=== PATIENT | male | born 1950 | race African-American/Black ===

== ENCOUNTER 2019-08-31 09:11 | Inpatient (IN) | payer OTHER ==
--- NOTE | 2019-08-31 09:21 | PDOC ---
Attending Attestation - Resident Resident Name: Melodie Romero - HPI HPI: 08/31/19 10:42 Pt presents to the ED complaining of generalized malaise and weakness that started this AM. Denies fever, nausea and vomiting. Patient denies a seizure disorder history, but has had a CVA and is on keppra. Also complaining of shortness of breath and chest discomfort that he describes as "knocking" inside his chest. All symptoms have since resolved. - Physicial Exam PE: 08/31/19 10:51 Agree with resident exam. Patient is alert, in NAD. HEENT: + icteric sclera. + jaundice visible on underside of tongue. CV: rrr no m/r/g Pulm: CTA b/l Abdomen: soft, nt, ND Ext: no edema. Neuro: alert and oriented x 3. + left sided weakness, chronic as per patient. - Medical Decision Making 08/31/19 10:53 PT presents to the ED complaining of generalized malaise that has now resolved. Patient has an apparent history of seizure disorder. + jaundice. + elevated LFT on labs that is new from last visit in 2014. Differential includes biliary obstruction, hepatic or pancreatic mass, less likely hepatitis, unlikely hepatotoxic medications. Will check RUQ US and CT, admit to medicine for continued work up. 08/31/19 10:55
--- NOTE | 2019-08-31 09:23 | PDOC ---
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 Pt states he woke up throughout the night "feeling fine". The fatigue was also associated with "racing in his chest". Pt has been constipated x5 days, which is normal for him (takes linzess). Pt denies any shaking, confusion, or recent seizure activity. Pt states the fatigue improved once he was able to take his morning medication. Pt ambulates at home with a cane. Pt denies any recent medication changes, fevers/chills, headache, jaundice , vision changes, syncope, chest pain, SOB, nausea/vomiting, abdominal pain, urinary symptoms, diarrhea, hematuria or rectal bleeding, or leg swelling. BGM by EMS was 130 Allergies: NKDA PCP: Dr. Lakhwinder Hyatt GI: Dr. Mejia Cards: Dr. Shah Neuro: Dr. Cotton (has not seen since 2014), pt does not recall seizure history Social: Pt denies any cigarette, alcohol, or drug use. Pt denies any recent travel or sick contacts. Surgical: L knee surgery Family: no relevant history. 08/31/19 11:26 08/31/19 11:32 Past History - Travel Traveled outside of the country in the last 30 days: No Close contact w/someone who was outside of country & ill: No - Past Medical History Allergies/Adverse Reactions: Allergies Allergy/AdvReac Type Severity Reaction Status Date / Time No Known Allergies Allergy Verified 08/31/19 09:26 Home Medications: Ambulatory Orders Aspirin [ASA -] 81 mg PO DAILY #60 tab.chew 11/05/14 Hydralazine HCl 25 mg PO TID #90 tablet 11/05/14 Isosorbide Mononitrate 30 mg PO DAILY #30 tab.sr.24h 11/05/14 Lansoprazole [Prevacid -] 30 mg PO DAILY #30 cap.sr.24h 11/05/14 Metoprolol Tartrate [Lopressor -] 100 mg PO BID #60 tablet 11/05/14 Nifedipine [Procardia Xl] 30 mg PO DAILY #30 tab.er.24 11/05/14 Nitroglycerin Sublingual [Nitrostat -] 0.4 mg SL PRN PRN #30 tab 11/05/14 Ranolazine [Ranexa] 1,000 mg PO BID #0 tab.er.12h 11/05/14 Tamsulosin HCl 0.8 mg PO DAILY #30 cap.er.24h 11/05/14 levETIRAcetam [Keppra -] 500 mg PO BID #60 tablet 11/05/14 Atorvastatin Ca [Lipitor] 80 mg PO HS 03/01/15 Clopidogrel Bisulfate [Plavix -] 75 mg PO DAILY 03/01/15 Valsartan [Diovan] 320 mg PO DAILY 03/01/15 metFORMIN HCL [Metformin ER Osmotic] 1,000 mg PO BID 03/01/15 Cyanocobalamin [Vitamin B12 -] 1,000 mcg PO DAILY #30 tablet 03/04/15 Hydrochlorothiazide [Hctz -] 25 mg PO DAILY #30 tablet 03/04/15 Nifedipine ER [Procardia XL -] 60 mg PO DAILY #30 tab.er.24 03/04/15 Potassium Chloride [K-Dur -] 40 meq PO Q4HPO #10 tablet.er 03/04/15 Anemia: No Asthma: No Cancer: No Cardiac Disorders: Yes CVA: Yes (left sided paralysis) COPD: No CHF: No Diabetes: Yes GI Disorders: No Disorders: No HTN: Yes Hypercholesterolemia: Yes Liver Disease: No Seizures: No Thyroid Disease: No - Surgical History Cardiac Surgery: Yes (stents) Orthopedic Surgery: Yes (L. knee) - Immunization History Immunization Up to Date: Yes - Psycho Social/Smoking Cessation Hx Smoking Status: No Smoking History: Never smoked Have you smoked in the past 12 months: No Number of Cigarettes Smoked Daily: 0 Hx Alcohol Use: No Drug/Substance Use Hx: No Substance Use Type: None Hx Substance Use Treatment: No Review of Systems - Review of Systems Able to Perform ROS?: Yes Is the patient limited Bhutanese proficient: No Constitutional: Yes: Malaise, Weakness, Weight Stable. No: Chills, Fever, Loss of Appetite, Night Sweats HEENTM: No: Recent change in vision, Nose Congestion, Throat Pain, Throat Swelling, Difficulty Swallowing Respiratory: No: Cough, Orthopnea, Shortness of Breath Cardiac (ROS): Yes: Palpitations. No: Chest Pain, Edema, Irregular Heart Rate, Lightheadedness, Syncope, Chest Tightness ABD/GI: Yes: Constipated. No: Diarrhea, Nausea, Poor Appetite, Poor Fluid Intake, Rectal Bleeding, Vomiting, Abdominal cramping, Tarry Stools : No: Burning, Dysuria, Frequency, Flank Pain, Hematuria, Pain, Urgency Musculoskeletal: No: Back Pain, Joint Pain, Muscle Pain, Muscle Weakness Integumentary: No: Change in Color, Rash Neurological: No: Headache, Numbness, Seizure, Weakness, Dizziness Psychiatric: No: Sleep Pattern Change, Change in Appetite Endocrine: No: Increased Urine, Change in Weight Hematologic/Lymphatic: Yes: Anemia (prior GIB). No: Blood Clots, Easy Bleeding , Easy Bruising *Physical Exam - Physical Exam Comments: Vitals stable, pt afebrile. Pt in NAD, thin body habitus. Pt able to stand with his cane on his own. Pt alert and oriented x3. director trade generally intact, muscular strength and sensation intact. Mild weakness in L leg (pt states baseline). Facial expressions and sensation intact. No midline spinal tenderness, step-offs, or crepitus. Head normocephalic, atraumatic. Eyes PERRLA, EOMI. +scleral icterus Oropharynx without erythema or exudates, no LAD b/l. No nasal congestion. Hearing intact. Clear heart sounds, S1/S2, no JVD, b/l pedal edema, or heart murmur. Clear lung sounds, no respiratory distress, wheezes, crackles, or accessory muscle use. No abdominal or CVA tenderness to palpation, no rebound, no guarding. Abdomen soft, non-distended, and with normoactive bowel sounds. Skin without jaundice or rash. 08/31/19 11:33 08/31/19 11:34 ED Treatment Course - LABORATORY CBC & Chemistry Diagram: 08/31/19 09:42 08/31/19 09:42 Medical Decision Making - Medical Decision Making Pt was seen at bedside, also will be seen by attending Dr. Velasco. Pt presenting with generalized weakness, scleral icterus on PE, no abdominal pain or tenderness. Will evaluate for anemia vs elevated LFTs (biliary obstruction, hepatitis) vs infection vs electrolyte abnormalities vs ACS. Provided 1 L IV NS for hydration. Will continue to reassess pt and monitor for symptomatic improvement. ECG: NSR, intervals WNL (HR 84, DE 204, QRS 82, QTc 467). TWIs in I, large T- wave V3. No significant changes from prior ECG (03/01/15). CBC unremarkable CMP: K 3.1, AST 166. A:T 205, ALK 505, Tbili 5.9 -- providing KCl Will evaluate with RUQ US and non-contrast abd/pelvis CT. 08/31/19 11:35 Troponin negative with no new EKG changes. UA -- nitrite positive urine +bacteria -- 1 g IV ceftriaxone Pt in US and CT scans. 08/31/19 11:46 IMPRESSION: Markedly dilated CBD up to 1.2 cm containing large amount of sludge and stone with intrahepatic biliary ductal dilatation. Distended gallbladder and mildly thickened wall with large amount of inspissated sludge and gallstones. Numerous right renal stones with no evidence of hydronephrosis. 08/31/19 12:[address] Llanes for admission for Dr. Samuel Hyatt 08/31/19 12:46 Dr. 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 Anna) for consultation. 08/31/19 13:01 Placed consult for GI (Dr. Mejia) Pt stable and resting comfortably. pending bed on med/surg. 08/31/19 13:55 Discharge - Discharge Information Problems reviewed: Yes Clinical Impression/Diagnosis: Jaundice, Choledocholithiasis UTI (urinary tract infection) Qualifiers: Urinary tract infection type: acute cystitis Hematuria presence: without hematuria Qualified Code(s): N30.00 - Acute cystitis without hematuria Condition: Stable - Admission Yes - Follow up/Referral Referrals: Samuel Hyatt MD [Primary Care Provider] - - Patient Discharge Instructions - Post Discharge Activity
[2019-08-31 09:54] LABS: BASO % 0.3 % (0-2.0); EOS % 0.2 % (0-4.5); HEMATOCRIT 39.8 % (35.4-49); HEMOGLOBIN 13.1 GM/dL (11.7-16.9); LYMPH % 8.8 % (8-40); MCH 27.5 pg (25.7-33.7); MCHC 32.8 g/dl (32.0-35.9); MEAN CELL VOLUME 83.8 fl (80-96); NEUT % 81.7 % (42.8-82.8); PLATELET COUNT 177 K/MM3 (134-434); RBC 4.75 M/mm3 (4.00-5.60); WHITE BLOOD COUNT 5.8 K/mm3 (4.0-10.0)
[2019-08-31] MEDS ORDERED: SODIUM CHLORIDE 1,000 ML IV STA (09:59)
[2019-08-31 10:20] LABS: INR 1.07 (0.83-1.09); PROTHROMBIN TIME (PATIENT) 12.6 SEC (9.7-13.0)
[2019-08-31 10:37] LABS: BILIRUBIN,TOTAL 5.9 mg/dL (0.2-1); BLOOD UREA NITROGEN 19.6 mg/dL (7-18); CREATININE 1.1 mg/dL (0.55-1.3); MAGNESIUM 2.4 mg/dL (1.8-2.4); POTASSIUM 3.1 mmol/L (3.5-5.1); TOT PROT 6.2 g/dl (6.4-8.2)
[2019-08-31 11:28] LABS: URINE APPEARANCE CLOUDY; URINE BILIRUBIN LARGE (NEGATIVE); URINE COLOR DK YELLOW; URINE GLUCOSE (UA) >1000 mg/dl (NEGATIVE)
[2019-08-31 11:29] LABS: PH,URINE 5.5 (5.0-8.0); URINE NITRITE POSITIVE (NEGATIVE)
[2019-08-31 11:30] LABS: URINE LEUK ESTERASE SMALL (NEGATIVE); URINE RBC 15.4 /hpf (0-4)
[2019-08-31 11:31] LABS: URINE BACTERIA 1.5 /hpf (NEGATIVE); URINE WBC 12.4 /hpf (0-5)
[2019-08-31] MEDS ORDERED: CEFTRIAXONE 1,000 MG in DEXTROSE 5%-WATER - 50 ML IVPB ONE (11:38)
--- NOTE | 2019-08-31 12:00 | EKG ---
Test Reason : Blood Pressure : / mmHG Vent. Rate : 084 BPM Atrial Rate : 084 BPM P-R Int : 204 ms QRS Dur : 082 ms QT Int : 396 ms P-R-T Axes : 036 -35 078 degrees QTc Int : 467 ms SINUS RHYTHM WITH PREMATURE ATRIAL COMPLEXES LEFT AXIS DEVIATION SEPTAL INFARCT , AGE UNDETERMINED INFERIOR INFARCT , AGE UNDETERMINED ABNORMAL ECG WHEN COMPARED WITH ECG OF 01-MAR-2015 03:26, INFERIOR INFARCT IS NOW PRESENT NON-SPECIFIC CHANGE IN ST SEGMENT IN LATERAL LEADS T WAVE INVERSION MORE EVIDENT IN LATERAL LEADS Confirmed by ANA MENDEZ MD ([id number]) on 08/31/2019 11:59:35 AM Referred By: Confirmed By:ANA MENDEZ MD
[2019-08-31] MEDS ORDERED: CEFTRIAXONE 1 GM/50 ML BAG ONE (13:32)
[2019-08-31] MEDS: KCL 10 MEQ IVPB 10 MEQ/100 ML INFUS.BAG IVPB SCH ×2 (14:54→16:10)
[2019-08-31 15:24] VITALS: BMI 20.6
[2019-08-31] MEDS ORDERED: FLU VACCINE QUAD 60 MCG/0.5 ML (MDV 19-20) IM ONE (15:24)
[2019-08-31] MEDS ORDERED: PNEUMOC 13-VAL CONJ-DIP CRM/PF 0.5 ML DISP.SYRIN IM ONE (15:24)
--- NOTE | 2019-08-31 17:39 | CON.GI ---
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 He went to the ER and was noted to be jaundiced associated with T.bili of 6, dilated CBD 1.2cm by ultrasound., The patient was scheduled to have ERCP this evening but developed substernal chest pain. 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 Cardio/Vascular: Yes: CAD, HTN, Hyperlipdemia, [place] Gastrointestinal: Yes: GERD - Past Surgical History Past Surgical History: Yes: Stent - Alcohol/Substance Use Hx Alcohol Use: No History of Substance Use: reports: None - Smoking History Smoking history: Never smoked Have you smoked in the past 12 months: No Aproximately how many cigarettes per day: 0 - Social History Usual Living Arrangement: With Spouse ADL: Independent Occupation: Disabled History of Recent Travel: No Home Medications - Allergies Allergies/Adverse Reactions: Allergies Allergy/AdvReac Type Severity Reaction Status Date / Time No Known Allergies Allergy Verified 08/31/19 09:26 - Home Medications Home Medications: Ambulatory Orders Ascorbic Acid [Vitamin C -] 500 mg PO DAILY 08/31/19 Clopidogrel Bisulfate [Plavix] 75 mg PO DAILY 08/31/19 Empagliflozin [Jardiance] 10 mg PO DAILY 08/31/19 Ferrous Sulfate 325 mg PO BID 08/31/19 Hydralazine HCl 25 mg PO BID 08/31/19 Isosorbide Mononitrate 50 mg PO DAILY 08/31/19 Linaclotide [Linzess] 290 mcg PO DAILY 08/31/19 Losartan Potassium 100 mg PO DAILY 08/31/19 Metoprolol Tartrate 50 mg PO BID 08/31/19 Nexium 40 mg PO DAILY 08/31/19 Nifedipine [Procardia Xl] 30 mg PO DAILY 08/31/19 Ranolazine [Ranexa] 500 mg PO BID 08/31/19 Rosuvastatin [Crestor -] 40 mg PO DAILY 08/31/19 Tamsulosin HCl 0.4 mg PO DAILY 08/31/19 Review of Systems - Review of Systems Gastrointestinal: reports: No Symptoms Physical Exam-GI Vital Signs: Vital Signs Temperature 97.7 F 08/31/19 15:01 Pulse Rate 87 08/31/19 15:01 Respiratory Rate 18 08/31/19 15:01 Blood Pressure 144/81 08/31/19 15:01 O2 Sat by Pulse Oximetry (%) 99 08/31/19 13:34 Constitutional: Yes: Well Nourished Eyes: Yes: Conjunctiva Clear HENT: Yes: Atraumatic Neck: Yes: Supple Cardiovascular: Yes: Regular Rate and Rhythm Respiratory: Yes: CTA Bilaterally ...Palpate: Yes: Soft. No: Firm/Rigid, Guarding, Hepatomegaly, Mass, Pulsatile Mass, Splenomegaly, Tenderness Labs: CBC, BMP 08/31/19 09:42 08/31/19 09:42 INR, PTT INR 1.07 (0.83-1.09) 08/31/19 09:42 Hepatic Panel Total Bilirubin 5.9 mg/dL (0.2-1) H 08/31/19 09:42 AST 166 U/L (15-37) H 08/31/19 09:42 ALT 205 U/L (13-61) H 08/31/19 09:42 Alkaline Phosphatase 505 U/L (45-117) H 08/31/19 09:42 Albumin 3.0 g/dl (3.4-5.0) L 08/31/19 09:42 Problem List - Problems (1) Chest pain Assessment/Plan: r/o unstable angina R> will need cardiac work up prior to undergoing ERCP d/w with Dr Llanes Code(s): R07.9 - CHEST PAIN, UNSPECIFIED (2) Choledocholithiasis Assessment/Plan: patient high rsik for any gi procedure at this time R> suggest to transer to s tertiary center Code(s): K80.50 - CALCULUS OF BILE DUCT W/O CHOLANGITIS OR CHOLECYST W/O OBST
[2019-08-31] MEDS ORDERED: morphine SULFATE 4 MG/ML VIAL IVPUSH PRN (17:59)
--- NOTE | 2019-08-31 18:04 | PN ---
Progress Note (short form) - Note Progress Note: spoke to Dr Lan [facility] will accept the patient for transfer Problem List - Problems (1) Chest pain Code(s): R07.9 - CHEST PAIN, UNSPECIFIED (2) Choledocholithiasis Code(s): K80.50 - CALCULUS OF BILE DUCT W/O CHOLANGITIS OR CHOLECYST W/O OBST
--- NOTE | 2019-08-31 19:30 | CON.CARD ---
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 Cardio/Vascular: Yes: CAD, HTN, Hyperlipdemia, [place], Other (CVA) Gastrointestinal: Yes: GERD - Past Surgical History Past Surgical History: Yes: Stent - Alcohol/Substance Use Hx Alcohol Use: No History of Substance Use: reports: None - Smoking History Smoking history: Never smoked Have you smoked in the past 12 months: No Aproximately how many cigarettes per day: 0 - Social History Usual Living Arrangement: With Spouse ADL: Independent Occupation: Disabled History of Recent Travel: No Home Medications - Allergies Allergies/Adverse Reactions: Allergies Allergy/AdvReac Type Severity Reaction Status Date / Time No Known Allergies Allergy Verified 08/31/19 09:26 - Home Medications Home Medications: Ambulatory Orders Ascorbic Acid [Vitamin C -] 500 mg PO DAILY 08/31/19 Clopidogrel Bisulfate [Plavix] 75 mg PO DAILY 08/31/19 Empagliflozin [Jardiance] 10 mg PO DAILY 08/31/19 Ferrous Sulfate 325 mg PO BID 08/31/19 Hydralazine HCl 25 mg PO BID 08/31/19 Isosorbide Mononitrate 50 mg PO DAILY 08/31/19 Linaclotide [Linzess] 290 mcg PO DAILY 08/31/19 Losartan Potassium 100 mg PO DAILY 08/31/19 Metoprolol Tartrate 50 mg PO BID 08/31/19 Nexium 40 mg PO DAILY 08/31/19 Nifedipine [Procardia Xl] 30 mg PO DAILY 08/31/19 Ranolazine [Ranexa] 500 mg PO BID 08/31/19 Rosuvastatin [Crestor -] 40 mg PO DAILY 08/31/19 Tamsulosin HCl 0.4 mg PO DAILY 08/31/19 Vital Signs: Vital Signs Temperature 97.7 F 08/31/19 18:18 Pulse Rate 97 H 08/31/19 18:18 Respiratory Rate 18 08/31/19 18:18 Blood Pressure 159/90 08/31/19 18:18 O2 Sat by Pulse Oximetry (%) 99 08/31/19 13:34 - Other Data Labs, Other Data: CBC, BMP 08/31/19 09:42 08/31/19 09:42 INR, PTT INR 1.07 (0.83-1.09) 08/31/19 09:42 Troponin, BNP 08/31/19 09:42 Troponin I 0.03 Troponin, BNP 08/31/19 09:42 Troponin I 0.03 Problem List - Problems (1) Seizure Code(s): R56.9 - UNSPECIFIED CONVULSIONS (2) Jaundice Code(s): R17 - UNSPECIFIED JAUNDICE (3) CVA (cerebral vascular accident) Assessment/Plan: [address]: likely old left frontal infarct. Carotid doppler 2013: mild plaque (repeat US was recommended). F/u Lipids. Code(s): I63.9 - CEREBRAL INFARCTION, UNSPECIFIED (4) Atypical chest pain Assessment/Plan: punctate left-sided chest pain at rest. TNI initially 0.03; f/u serially (pt had repeat chest pain resulting in cancellation of GI procedure). F/u EKG serially (hx coronary stents; EKG reflects old MS, new ? ischemic changes). ECHO for LVEF, wall motion. Transfer to telemetry; as noted, with pt considered at high risk for possible GI surgery, transfer to tertiary center may be preferable. Code(s): R07.89 - OTHER CHEST PAIN (5) Elevated LFTs Code(s): R94.5 - ABNORMAL RESULTS OF LIVER FUNCTION STUDIES (6) HTN (hypertension) Assessment/Plan: F/u BP serially; on no medications presently. ECHO for LVEF, wall thickness and motion; valve status. Code(s): I10 - ESSENTIAL (PRIMARY) HYPERTENSION (7) Elevated troponin Assessment/Plan: TNI elevated to MS levels in 2011 and 2012; hx several coronary stents. Now with chest pain. F/u TNI, EKG, telemetry. ECHO for LVEF, wall motion. F/u prior cardiac workup. Code(s): R79.89 - OTHER SPECIFIED ABNORMAL FINDINGS OF BLOOD CHEMISTRY (8) Choledocholithiasis Assessment/Plan: ERCP cancelled today due to chest pain. Hx MS, coronary stents (the latest reportedly 2016). Pt considered at high risk for GI procedure; for transfer to tertiary center. Code(s): K80.50 - CALCULUS OF BILE DUCT W/O CHOLANGITIS OR CHOLECYST W/O OBST
--- NOTE | 2019-08-31 20:58 | HP ---
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 Cardiovascular: Yes: CAD, HTN, Hyperlipdemia, [place], Other (CVA) Gastrointestinal: Yes: GERD - Past Surgical History Past Surgical History: Yes: Stent - Smoking History Smoking history: Never smoked Have you smoked in the past 12 months: No Aproximately how many cigarettes per day: 0 - Alcohol/Substance Use Hx Alcohol Use: No History of Substance Use: reports: None - Social History ADL: Independent Occupation: Disabled History of Recent Travel: No Home Medications - Allergies Allergies/Adverse Reactions: Allergies Allergy/AdvReac Type Severity Reaction Status Date / Time No Known Allergies Allergy Verified 08/31/19 09:26 - Home Medications Home Medications: Ambulatory Orders Ascorbic Acid [Vitamin C -] 500 mg PO DAILY 08/31/19 Clopidogrel Bisulfate [Plavix] 75 mg PO DAILY 08/31/19 Empagliflozin [Jardiance] 10 mg PO DAILY 08/31/19 Ferrous Sulfate 325 mg PO BID 08/31/19 Hydralazine HCl 25 mg PO BID 08/31/19 Isosorbide Mononitrate 50 mg PO DAILY 08/31/19 Linaclotide [Linzess] 290 mcg PO DAILY 08/31/19 Losartan Potassium 100 mg PO DAILY 08/31/19 Metoprolol Tartrate 50 mg PO BID 08/31/19 Nexium 40 mg PO DAILY 08/31/19 Nifedipine [Procardia Xl] 30 mg PO DAILY 08/31/19 Ranolazine [Ranexa] 500 mg PO BID 08/31/19 Rosuvastatin [Crestor -] 40 mg PO DAILY 08/31/19 Tamsulosin HCl 0.4 mg PO DAILY 08/31/19 Physical Examination Vital Signs: Vital Signs Temperature 98.2 F 08/31/19 19:37 Pulse Rate 97 H 08/31/19 19:37 Respiratory Rate 22 H 08/31/19 19:37 Blood Pressure 142/75 08/31/19 19:37 O2 Sat by Pulse Oximetry (%) 99 08/31/19 13:34 Labs: CBC, BMP 08/31/19 09:42 08/31/19 09:42
[2019-08-31] MEDS ORDERED: DEXTROSE 5%-0.45% SALINE 1,000 ML IV SCH (21:15)
[2019-08-31] MEDS ORDERED: PIPERACILLIN/TAZOB 3.375 GM 3.375 GM in DEXTROSE 5%-WATER - 50 ML IVPB SCH (21:30)
[2019-08-31] MEDS ORDERED: DEXTROSE 5%-WATER - 50 ML IVPB ONE (21:54)
[2019-08-31] MEDS ORDERED: PIPERACILLIN/TAZOBACTAM 3.375 GM VIAL IVPB ONE (21:54)
[2019-08-31] MEDS: ASPIRIN COATED 81 MG TABLET.EC PO SCH ×2 (21:57→22:21)
[2019-08-31] MEDS ORDERED: HEPARIN NA (PORCINE) 5,000 UNITS/ML 1ML VIAL SQ SCH (22:00)
[2019-09-01 00:24] LABS: ALBUMIN 3.1 g/dl (3.4-5.0); BILIRUBIN,TOTAL 6.2 mg/dL (0.2-1); BLOOD UREA NITROGEN 14.7 mg/dL (7-18); CALCIUM 7.7 mg/dL (8.5-10.1); POTASSIUM 3.3 mmol/L (3.5-5.1); TOT PROT 6.3 g/dl (6.4-8.2)
[2019-09-01 00:51] VITALS: TEMP 98
[2019-09-01 00:52] VITALS: BP 149/80; PULSE 98
== END 2019-09-01 01:30 | disposition short-term general hospital (02) | DRG 445 ==
LOC: JER 09:11 → JERBED 12:42 → J8W 14:33 → J4W 20:42
PROVIDERS: ADMIT Internal Medicine; ATTEND Internal Medicine
PROC: 30233R1 Transfusion of Nonautologous Platelets into Peripheral Vein, Percutaneous Approach (ICD-10-PCS; principal; 2019-08-31)
DX: K80.50 Calculus of bile duct without cholangitis or cholecystitis without obstruction (principal); I69.354 Hemiplegia and hemiparesis following cerebral infarction affecting left non-dominant side; R17 Unspecified jaundice; R07.89 Other chest pain; I25.10 Atherosclerotic heart disease of native coronary artery without angina pectoris; K21.9 Gastro-esophageal reflux disease without esophagitis; I10 Essential (primary) hypertension; E78.5 Hyperlipidemia, unspecified; I27.20 Pulmonary hypertension, unspecified; E11.9 Type 2 diabetes mellitus without complications; Z98.61 Coronary angioplasty status; R56.9 Unspecified convulsions; R79.89 Other specified abnormal findings of blood chemistry; D64.9 Anemia, unspecified
CPT/HCPCS: 36415; 36430; 36511; 71045-TC-FY; 74177-TC; 76705-TC; 80053; 80061; 80307; 81003; 82550; 82553; 82962; 83690; 83721; 83735; 84443; 84484; 85025; 85610; 87086; 93005; 93010; 99285-25; J1644; J7030; P9034; P9038

== ENCOUNTER 2021-04-11 03:25 | Inpatient (IN) | payer OTHER ==
[2021-04-11 03:50] VITALS: BMI 24.7
[2021-04-11 04:10] LABS: BASO % 0.5 % (0-2.0); EOS % 1.8 % (0-4.5); HEMATOCRIT 39.3 % (35.4-49); HEMOGLOBIN 12.9 GM/dL (11.7-16.9); LYMPH % 15.5 % (8-40); MCH 27.2 pg (25.7-33.7); MCHC 32.8 g/dl (32.0-35.9); MEAN CELL VOLUME 82.8 fl (80-96); MEAN PLT VOLUME 8.6 fl (7.5-11.1); NEUT % 73.2 % (42.8-82.8); PLATELET COUNT 146 10^3/uL (134-434); RBC 4.75 M/mm3 (4.00-5.60); RDW 17.3 % (11.9-15.9); WHITE BLOOD COUNT 5.5 K/mm3 (4.0-10.0)
[2021-04-11 04:20] LABS: INR 0.94 (0.83-1.09); PROTHROMBIN TIME (PATIENT) 11.6 SEC (9.7-13.0)
[2021-04-11 04:23] LABS: ACTIVATED PTT 38.3 SECONDS (25.2-36.5)
[2021-04-11 04:36] LABS: CALCIUM 8.9 mg/dL (8.5-10.1)
[2021-04-11 04:37] LABS: ALBUMIN 3.8 g/dl (3.4-5.0); BLOOD UREA NITROGEN 22.1 mg/dL (7-18)
[2021-04-11 04:40] LABS: CREATININE 0.9 mg/dL (0.55-1.3)
[2021-04-11 04:41] LABS: BILIRUBIN,TOTAL 0.5 mg/dL (0.2-1); TOT PROT 7.1 g/dl (6.4-8.2)
[2021-04-11] MEDS ORDERED: ASPIRIN 325 MG TABLET PO ONE (05:01)
[2021-04-11] MEDS ORDERED: ASPIRIN 325 MG ENTERIC COATED TABLET (FP) ONE (05:35)
[2021-04-11] MEDS ORDERED: METOPROLOL TARTRATE 50 MG TABLET (FP) PO SCH (10:00)
[2021-04-11] MEDS ORDERED: NIFEdipine E.R. 30 MG TABLET PO SCH (10:00)
[2021-04-11] MEDS ORDERED: CLOPIDOGREL BISULFATE 75 MG TABLET (FP) PO SCH (10:00)
[2021-04-11] MEDS ORDERED: RANOLAZINE E.R. 500 MG TABLET (FP) PO SCH (10:00)
[2021-04-11] MEDS ORDERED: hydrALAZINE HCL 25 MG TABLET (FP) PO SCH (10:00)
[2021-04-11] MEDS ORDERED: TAMSULOSIN HCL 0.4 MG CAP PO SCH (10:00)
[2021-04-11] MEDS ORDERED: FERROUS SO4 325 MG TABLET (FP) PO SCH (10:00)
[2021-04-11] MEDS ORDERED: ENOXAPARIN NA (PORCINE) 40 MG/0.4 ML DISP.SYRIN SQ SCH (10:00)
[2021-04-11] MEDS ORDERED: LOSARTAN POTASSIUM 100 MG TABLET PO SCH (10:00)
[2021-04-11] MEDS ORDERED: ASPIRIN COATED 81 MG TABLET.EC PO SCH (10:00)
[2021-04-11 10:46] VITALS: BP 140/68; PULSE 70; TEMP 98
[2021-04-11] MEDS ORDERED: INSULIN SLIDING SCALE (NOVOLOG) 1 VIAL SQ SCH (11:00)
[2021-04-11] MEDS ORDERED: LOSARTAN POTASSIUM 50 MG TABLET PO SCH (11:44)
[2021-04-11] MEDS ORDERED: PT OWN MED DRAWER 7, Y5N ONE (12:03)
[2021-04-11] MEDS ORDERED: ROSUVASTATIN CA 20 MG TABLET (FP) PO SCH (22:00)
== END 2021-04-11 14:24 | disposition short-term general hospital (02) | DRG 303 ==
LOC: JER 03:25 → JERBED 04:59 → J4W 09:23 → OBSVTOIN 09:38
PROVIDERS: ADMIT Internal Medicine; ATTEND Internal Medicine
DX: I25.110 Atherosclerotic heart disease of native coronary artery with unstable angina pectoris (principal); I69.354 Hemiplegia and hemiparesis following cerebral infarction affecting left non-dominant side; I10 Essential (primary) hypertension; E78.5 Hyperlipidemia, unspecified; E11.9 Type 2 diabetes mellitus without complications; I25.2 Old myocardial infarction; G40.909 Epilepsy, unspecified, not intractable, without status epilepticus
CPT/HCPCS: 36415; 71045-TC-FY; 80053; 82550; 82962; 84484; 85025; 85610; 85730; 93005; 93010; 93306-TC; 99285-25; C9803; G0378; U0003; U0005